=== PATIENT | male | born 2000 | race Two or more races ===

== ENCOUNTER 2024-08-06 16:26 | Emergency (ER) | payer MEDICAID, SELFPAY ==
[2024-08-06] VITALS (18 sets, daily range): BP systolic 94–114; BP diastolic 55–72; PULSE 75–99; RESP 14–25; TEMP 36.9–38.4; O2SAT 96–100; BMI 22.8
--- NOTE | 2024-08-06 17:29 | XR_ITS ---
Examination: CT abdomen with intravenous contrast CT pelvis with intravenous contrast 2-D coronal reconstructions 2-D sagittal reconstructions Date and time of exam:August 06, 20242053 hrs. Indications: Onset right lower abdominal pain today, clinical diagnosis appendicitis. CTDI: vol (mGy) 5.06 DLP: (mGycm) 282 Technique: Most consistent with pericecal abscess axial sections of the abdomen and pelvis have been obtained. 64 slice high-resolution scanner used. 3 mm axial sections have been obtained, post intravenous injection 60 cc Isovue-370 2-D sagittal, coronal reconstructions obtained. Low dose protocols were performed. One or more of the following dose reduction techniques were used; automated exposure control, adjustment of the mA and/or KV according to patient size, use of iterative reconstruction technique. Findings: No focal liver or splenic lesions No gallstones No pancreatic or adrenal mass No renal or ureteral calculi, no hydronephrosis Aorta normal size The appendix is not clearly visualized, but there is a large air and fluid containing mass which is posterior to the cecum, 8.4 x 4.8 x 8.4 cm Urinary bladder intact No bowel obstruction Impression: The appendix is not diagnostically visualized There is a large air and fluid containing mass which is posterior to the cecum, 8.4 x 4.8 x 8.4 cm, differential would include pericecal abscess secondary to ruptured acute appendicitis, the appearance should be clinically correlated
--- NOTE | 2024-08-06 17:32 | PD.EDRME ---
Rapid Medical Screening Exam RME Arrival date/time: 08/06/24 16:26 23-year-old male presents emergency department complaining of right lower quadrant pain that is been ongoing for several weeks patient report seeing primary care provider and was sent to emergency department to rule out appendicitis. Chief Complaint: Abdominal Pain Time Seen by Provider: 08/06/24 17:24 Vital signs: Vital Signs Temperature 101.1 F H 08/06/24 17:15 Pulse Rate 98 08/06/24 17:15 Respiratory Rate 16 08/06/24 17:15 Blood Pressure 102/68 08/06/24 17:15 Pulse Oximetry (%) 96 08/06/24 17:15 Oxygen Delivery Method Room Air 08/06/24 17:15 Vital signs reviewed by provider: Yes
[2024-08-06 17:51] LABS: Collection Type, Urine Clean Catch; Squamous Epithelial Cell,Urine 0 /hpf (0-5)
[2024-08-06 18:00] LABS: Basophils # (Auto) 0.1 Thou/mm3 (0.0-0.2); Basophils % (Auto) 0 % (0-2.5); Eosinophils % (Auto) 0 % (0-10); Hematocrit 41.4 % (41.0-53.0); Hemoglobin 14.6 g/dL (13.5-16.0); Immature Granulocytes % (Auto) 1 % (0-0); Immature Granulocytes Auto 0.15 Thou/mm3 (0.00-0.00); Lymphocytes # (Auto) 1.4 Thou/mm3 (1.0-4.8); Lymphocytes % (Auto) 6 % (10-50); Mean Corpuscular HGB Conc 35.3 g/dl (31.0-37.0); Mean Corpuscular Hemoglobin 30.7 pg (25.0-35.0); Mean Corpuscular Volume 87 fL (80-100); Monocytes # (Auto) 1.6 Thou/mm3 (0.0-0.8); Monocytes % (Auto) 7 % (0-12); Neutrophils # (Auto) 20.5 Thou/mm3 (1.8-7.7); Neutrophils % (Auto) 86 % (37-80); Nucleated Red Blood Cell % 0 /100 WBC (0); Platelet Count 322 Thou/mm3 (140-440); RDW Standard Deviation 38.3 fL (35.1-43.9); Red Blood Count 4.75 Miln/mm3 (4.50-5.90); White Blood Count 23.8 Thou/mm3 (3.8-10.6)
[2024-08-06 18:01] LABS: Bilirubin,Urine Negative (Negative); Blood,Urine 2+ (Negative); Clarity,Urine Clear (Clear/Hazy); Color,Urine Yellow (Lt Yel-Yel); Culture Indicated,Urine Not Indicated; Glucose, Urine Negative (Negative); Ketones,Urine 2+ (Negative); Leukocyte Esterase,Urine Negative (Negative); Nitrite,Urine Negative (Negative); PH,Urine 6.5 (5.0-7.0); Protein,Urine 1+ (Neg - Trace); RBC,Urine 10 /hpf (0-3); Specific Gravity,Urine 1.027 (1.001-1.035); Transitional Epi Cells,Urine 1 /hpf (0-5); Urobilinogen,Urine Negative mg/dL (0.0-1.0); WBC,Urine 5 /hpf (0-5)
[2024-08-06] MEDS: ACETAMINOPHEN 500 MG TABLET 1000 MG PO (18:08)
[2024-08-06 18:32] LABS: Alanine Aminotransferase 72 U/L (10-49); Albumin, Serum 4.7 gm/dL (3.5-5.0); Albumin/Globulin Ratio 1.4 (1.2-2.2); Alkaline Phosphatase 90 U/L (46-116); Anion Gap 9 (7-16); Aspartate Amino Transferase 64 U/L (0-34); BUN/Creatinine Ratio 10 Ratio (12-20); Bilirubin,Total 0.8 mg/dL (0.3-1.2); Blood Urea Nitrogen 10 mg/dL (9-23); Calcium 8.7 mg/dL (8.3-10.6); Calcium (Corrected) 8.7 mg/dL (8.5-10.1); Carbon Dioxide 27.6 mMol/L (20.0-31.0); Chloride 94 mMol/L (98-107); Estimated Creatinine Clearance 111.5 mL/min (>60); Globulin 3.3 gm/dL (2.3-3.5); Glucose 107 mg/dL (74-106); Lipase 23 U/L (12-53); Osmolality,Calculated 261 (275-295); Potassium 3.7 mMol/L (3.4-5.1); Sodium 131 mMol/L (136-145); eGFR > 60 See Note
[2024-08-06 20:07] LABS: Lactate (Lactic Acid) 1.2 mMol/L (0.4-2.0)
--- NOTE | 2024-08-06 20:29 | EDNOTE_ITS ---
ED Abdominal Pain RME/HPI General Chief Complaint: Abdominal Pain Stated complaint: RIGHT ABD PAIN x 2 WEEKS Time seen by provider: 08/06/24 17:24 Arrival date/time: 08/06/24 16:26 RME / HPI RME / HPI narrative: 08/06/24 16:26 23-year-old male presents emergency department complaining of right lower quadrant pain that is been ongoing for several weeks patient report seeing primary care provider and was sent to emergency department to rule out appendicitis. ------ Dr. Clement?s Main ED Evaluation: 23yo male presents to the ED for a chief complaint of RLQ pain x 2 weeks. Patient states his pain was intermittent, reporting it significantly worsened today. He has not vomited since the first day he started having pain. He endorses having diarrhea today. He denies any cough, sore throat, chest pain, shortness of breath or any other associated symptoms. Denies any previous abdominal surgeries. No known allergies. Related Data Home Medications ?Medication ?Instructions ?Recorded ?Confirmed No Known Home Medications 08/06/24 08/06/24 Allergies Allergy/AdvReac Type Severity Reaction Status Date / Time No Known Allergies Allergy Verified 08/06/24 16:32 Review of Systems Review of Systems Systems Reviewed: All systems reviewed, normal except as documented Narrative Review of Systems: Gen: No fever, no chills, no weight loss EYES: No discharge, no visual changes, no pain HEENT: No ear pain, no congestion, no sore throat PULM: No shortness of breath, no cough, no congestion CV: No chest pain, no dyspnea on exertion, no palpitations GI: No nausea, no vomiting, + diarrhea, + pain, no constipation : No frequency, no urgency, no dysuria Musc/skel: No joint pain, no back pain Skin: No rash. Warm and dry. Psyc: No hallucinations, no depression Heme/Lymph: No easy bleeding or bruising tendencies Neuro: No weakness, no headache Past Medical History Past Medical History RESPIRATORY: Negative Asthma GENITOURINARY: Negative Renal Disease HEMATOLOGIC: Negative Sickle Cell Disease Social History SMOKING STATUS: Heavy (> 1 pack/day) ED Exam Narrative Physical exam: GENERAL APPEARANCE: alert and oriented x 4, well-developed, well-nourished, no acute distress VITALS: All vitals were reviewed and the pulse ox is 96% on room air, which is normal according to my interpretation. HEENT: Normocephalic, atraumatic; pupils equal, round, reactive to light; EOMI; mucous membranes pink, moist; oropharynx clear NECK: Supple LUNGS: CTABL; no wheezes, no rales, no rhonchi HEART: Regular rate, regular rhythm; normal S1, S2; no murmurs ABDOMEN: non distended; normal BS; soft, severe RLQ tenderness, no guarding, + rigidity and rebound; no masses, no organomegaly, no hernia BACK: no CVA tenderness EXTREMITIES: atraumatic; no edema NEUROLOGIC: awake; alert and oriented x4; cranial nerves II-XII grossly intact; no focal sensory or motor deficits PSYCHIATRIC: appropriate mood and affect SKIN: warm, dry, normal color; no rashes Course Course Course Narrative: 1916: Sepsis alert initiated. Orders made at this time are congruent with ED Adult Sepsis Order List. Re-evaluation is to be completed. CXR is ordered for determining the etiology of fever. Quality Measures Possible source: GI tract/intra-abdominal Blood cultures ordered: yes Antibiotic ordered: Yes Pertinent labs: 08/06/24 08/06/24 19:36 21:26 Lactic Acid 1.2 mMol/L (0.4-2.0) Procalcitonin 0.43 ng/ml 0.34 ng/ml (0.0-0.49) (0.0-0.49) sepsis Orders Category Date Time Status CT Screening NOW Care 08/06/24 17:29 Completed Ball Mill Operator STAT Care 08/06/24 20:33 Completed Continuous Pulse Oximetry STAT Care 08/06/24 20:33 Completed EKG (ED ONLY) *Do not use* NOW Care 08/06/24 20:33 Completed Insert IV NOW Care 08/06/24 20:33 Completed Insert [Insert IV] NOW Care 08/06/24 17:29 Completed NPO STAT Care 08/06/24 20:[address] abdomen pelvis w con Stat Exams 08/06/24 17:29 Completed EKG (ED Only) Stat Exams 08/06/24 20:33 Draft XR chest 1V portable Stat Exams 08/06/24 20:33 Completed B-Type Natriuretic Peptide Stat Lab 08/06/24 21:26 Completed Blood Culture (Lab) Stat Lab 08/06/24 19:36 Results Blood Culture (Lab) Stat Lab 08/06/24 21:28 Results CBC Stat Lab 08/06/24 17:48 Completed CMP [Comprehensive Metabolic Panel] Stat Lab 08/06/24 17:48 Completed LDH (Lactate Dehydrogenase) Stat Lab 08/06/24 21:26 Completed Lactate (Lactic Acid) Stat Lab 08/06/24 19:36 Completed Lipase Stat Lab 08/06/24 17:48 Completed Magnesium Stat Lab 08/06/24 21:26 Completed Partial Thromboplastin Time Stat Lab 08/06/24 21:26 Completed Phosphorous Stat Lab 08/06/24 21:26 Completed Procalcitonin Stat Lab 08/06/24 19:36 Completed Procalcitonin Stat Lab 08/06/24 21:26 Completed Prothrombin Time with INR Stat Lab 08/06/24 21:26 Completed Troponin I Stat Lab 08/06/24 21:26 Completed Urinalysis, C/S if Indicated Stat Lab 08/06/24 17:37 Completed Acetaminophen Tab [Tylenol ES Tab] Med 08/06/24 17:29 Discontinued 1,000 mg PO X1 ONE Acetaminophen Tab [Tylenol Tab] Med 08/07/24 06:26 Discontinued 650 mg PO X1 ONE Morphine Inj Med 08/07/24 08:15 Discontinued 4 mg IVP X1 ONE Piper/Tazo 3.375 gm [Zosyn] Med 08/06/24 20:33 Discontinued 3.375 gm in 50 ml IV X1 Piper/Tazo Inj [Zosyn Inj] 3.375 gm Med 08/07/24 10:45 Discontinued Sodium Chloride 0.9% (P) [Ns 0.9% (P)] 50 ml IV X1 Sodium Chloride 0.9% 1000 ml [Ns] 2,052 ml Med 08/06/24 20:33 Discontinued IV 2,052 mls/hr Vancomycin Inj 1,000 mg Med 08/06/24 20:34 Discontinued Sodium Chloride 0.9% 250 ml [Ns] 250 ml IV X1 Vital Signs Vital signs: Vital Signs Temperature 101.1 F H 08/06/24 17:15 Pulse Rate 98 08/06/24 17:15 Respiratory Rate 16 08/06/24 17:15 Blood Pressure 102/68 08/06/24 17:15 Pulse Oximetry (%) 96 08/06/24 17:15 Oxygen Delivery Method Room Air 08/06/24 17:15 Abdominal Pain MDM MDM Narrative MDM Narrative:: Scribe Attestation: 08/06/24 - Lena Osborn am scribing for and in the presence of Dr. Clement. Melba Allenfield made aware of this patient's case. Awaiting callback at this time. Patient data External records reviewed:: [facility] previous records (Per chart review, patient has no previous ED visits or admissions to this facility.) Clinical information provided by:: patient Social determinants that could affect healthcare access:: none Patient has the following chronic illnesses:: none How is presenting disease/condition affected by chronic disease/condition?: no chronic disease Evaluation data The following diagnostics were reviewed and interpreted by me:: lab results, radiology exam(s) and EKG tracing(s) Lab and/or radiology exams considered but not ordered:: none Interpretation Summary: WBC count is elevated at 23.8, Sodium is low at 131, Lactic Acid is normal, Lipase is normal, according to my interpretation. EKG done at 2143, NSR, rate of 81, normal axis, no ectopy, T-wave abnormalities in the precordial leads, no STEMI, according to my interpretation. ---- [facility] Report Signed Patient: ARTEMIO TEJADA [facility]. Record#: [id number] Birthdate: 2000 Age/Sex: 23 / M Location: [facility] Attending Dr: Ordering Physician: Sasha FELIX)Kunal Date of Service: 08/06/24 Procedure(s): CT abdomen pelvis w con Accession Number(s): [id number] cc: Alan Trivedi MD; Som Nassar MD; Sasha FELIX)Kunal~ Examination: CT abdomen with intravenous contrast CT pelvis with intravenous contrast 2-D coronal reconstructions 2-D sagittal reconstructions Date and time of exam:August 06, 20242053 hrs. Indications: Onset right lower abdominal pain today, clinical diagnosis appendicitis. CTDI: vol (mGy) 5.06 DLP: (mGycm) 282 Technique: Most consistent with pericecal abscess axial sections of the abdomen and pelvis have been obtained. 64 slice high-resolution scanner used. 3 mm axial sections have been obtained, post intravenous injection 60 cc Isovue-370 2-D sagittal, coronal reconstructions obtained. Low dose protocols were performed. One or more of the following dose reduction techniques were used; automated exposure control, adjustment of the mA and/or KV according to patient size, use of iterative reconstruction technique. Findings: No focal liver or splenic lesions No gallstones No pancreatic or adrenal mass No renal or ureteral calculi, no hydronephrosis Aorta normal size The appendix is not clearly visualized, but there is a large air and fluid containing mass which is posterior to the cecum, 8.4 x 4.8 x 8.4 cm Urinary bladder intact No bowel obstruction Impression: The appendix is not diagnostically visualized There is a large air and fluid containing mass which is posterior to the cecum, 8.4 x 4.8 x 8.4 cm, differential would include pericecal abscess secondary to ruptured acute appendicitis, the appearance should be clinically correlated Dictated By: Som Nassar MD Signed By: <Electronically signed by Som Nassar MD in OV> 08/06/242117 ------- [facility] Report Signed Patient: ARTEMIO TEJADA Record#: [id number] Birthdate: 2000 Age/Sex: 23 / M Location: [facility] Attending Dr: Ordering Physician: Jose D Clement MD Date of Service: 08/06/24 Procedure(s): XR chest 1V portable Accession Number(s): [id number] cc: Alan Trivedi MD; Som Nassar MD; Jose D Clement MD~ Examination: AP chest single view Technique one AP portable upright chest single view Exam date and time: July 29, 20242056 hrs. Indications: Sepsis alert today Findings: Normal heart size Lungs are clear. The osseous structures are intact Impression: No active disease Dictated By: Som Nassar MD Signed By: <Electronically signed by Som Nassar MD in OV> 08/06/242101 Medications / Prescriptions Medications or Prescriptions considered but not ordered:: none Medication administrations:: Medication Administration History Discontinued Medications Acetaminophen (Acetaminophen 500 Mg Tablet) 1,000 mg PO X1 ONE Stop: 08/06/24 17:30 Last Admin: 08/06/24 18:08 Dose: 1,000 mg Documented By: Acetaminophen (Acetaminophen 325 Mg Tablet) 650 mg PO X1 ONE Stop: 08/07/24 06:27 Last Admin: 08/07/24 06:29 Dose: 650 mg Documented By: TC Sodium Chloride (Ns) 2,052 mls @ 2,052 mls/hr 30 ml/kg infuse over 60 min (2052 ml) IV .Q1H ONE Stop: 08/06/24 21:32 Last Infusion: 08/06/24 22:55 Dose: Infused Documented By: Admin: 08/06/24 20:52 Dose: 2,052 mls/hr Documented By: KASEY Piperacillin/Tazobactam/Dextrose (Zosyn) 3.375 gm in 50 mls @ 100 mls/hr IV X1 ONE Stop: 08/06/24 21:02 Last Infusion: 08/06/24 21:07 Dose: Infused Documented By: Admin: 08/06/24 20:52 Dose: 100 mls/hr Documented By: KASEY Vancomycin HCl 1,000 mg/ (Sodium Chloride) 250 mls @ 150 mls/hr IV X1 ONE Stop: 08/06/24 22:13 Last Infusion: 08/07/24 00:38 Dose: Infused Documented By: Admin: 08/06/24 22:21 Dose: 150 mls/hr Documented By: BERTRAM Comments: unable to scan vancomycin medication, vancomycin 1gm and ns 250ml double verified with saroj velasco. Piperacillin Sod/Tazobactam (Sod 3.375 gm/ Sodium Chloride) 50 mls @ 100 mls/hr IV X1 ONE Stop: 08/07/24 11:14 Last Admin: 08/07/24 10:50 Dose: 100 mls/hr Documented By: CHERIE Morphine Sulfate (Morphine Sulf Inj 10 Mg/Ml Vial) 4 mg IVP X1 ONE Stop: 08/07/24 08:16 Last Admin: 08/07/24 08:21 Dose: 4 mg Documented By: CHERIE see above Consultations Consultation(s) initiated? (list below): Yes Consultation #1 (Physician, Specialty, Details): Discussed case with [Dr. Hickman] from [general surgery] regarding [consultation]. Discussed patients ED course, exam findings, labs, and radiology results. States the patient needs drainage by IR and needs to be transferred. Time: 21:35 Diagnosis Differential diagnosis abdominal pain: acute appendicitis, diverticulitis, pancreatitis and other (ruptured appendicitis) Most likely diagnosis given after review of the tests above:: see below Admission Indicated Admission indicated?: not indicated Explain why admission is indicated or not indicated:: Patient requires a higher [id number]. Admission Request Was there a request for admission?: No Disposition Plan Disposition Plan: other (specify) (Signed out to Dr. Martins at 0600 pending callback from [facility] Critical Care Time Critical Care Time Critical Care Time: Yes Total Critical Care Time (min.): 40 Attestation: The high probability of sudden, clinically significant deterioration in the patient?s condition required the highest level of my preparedness to intervene urgently. The services I provided to this patient were to treat and/or prevent clinically significant deterioration. Services included the following: chart data review, reviewing nursing notes and/or old charts, documentation time, sales support consultant collaboration regarding findings and treatment options, medication orders and management, direct patient care, vital sign assessments and ordering, in terpreting and reviewing diagnostic studies and lab tests. Aggregate critical care time includes only time during which I was engaged in work directly related to the patient?s care, as described above, whether at bedside or elsewhere in the Emergency Department. It did not include time spent performing other reported procedures or the services of residents, students, nurses or physician assistants. Discharge Plan Plan Patient Disposition: [facility] Pt Being Transferred to: [facility] Service Needed for Transfer: General Surgery Prescriptions/Referrals Prescriptions/Med Rec: No Action No Known Home Medications Referrals: Alan Trivedi MD [Primary Care Provider] - In 1 week Problem List Clinical Impression: Sepsis, Ruptured appendicitis Patient/Caregiver Discharge Instructions Print Language: Cymraes Stand Alone Forms: [employer] Award Info., Patient Portal Info Letter
[2024-08-06 20:33] LABS: Procalcitonin 0.43 ng/ml (0.0-0.49)
--- NOTE | 2024-08-06 20:33 | XR_ITS ---
Examination: AP chest single view Technique one AP portable upright chest single view Exam date and time: July 29, 20242056 hrs. Indications: Sepsis alert today Findings: Normal heart size Lungs are clear. The osseous structures are intact Impression: No active disease
--- NOTE | 2024-08-06 20:33 | EKG_ITS ---
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
[2024-08-06] MEDS: PIPER/TAZO 3.375 GM 3.375 GM/50 ML BAG IV (20:52)
[2024-08-06] MEDS: SODIUM CHLORIDE 0.9% 1000 ML 2,052 ML 2052 ML IV (20:52)
[2024-08-06 22:09] LABS: INR 1.4 (0.9-1.3); Prothrombin Time 15.2 Seconds (9.0-12.2)
[2024-08-06 22:11] LABS: B-Type Natriuretic Peptide 42 pg/mL (0-100)
[2024-08-06 22:21] LABS: Magnesium 2.3 mg/dL (1.6-2.6); Phosphorous 4.1 mg/dL (2.4-5.1); Troponin I < 0.002 ng/mL (0.0-0.045)
[2024-08-06] MEDS: Vancomycin Inj 1,000 MG in SODIUM CHLORIDE 0.9% 250 ML 250 ML 150 MG IV (22:21)
[2024-08-06 22:38] LABS: LDH (Lactate Dehydrogenase) 283 U/L (120-246); Procalcitonin 0.34 ng/ml (0.0-0.49)
[2024-08-07] VITALS (31 sets, daily range): BP systolic 82–110; BP diastolic 47–70; PULSE 71–103; RESP 15–30; TEMP 36.9–38.7; O2SAT 95–100
--- NOTE | 2024-08-07 03:51 | PC.NURSE ---
Khalif DEL REAL CONTACTED PT PKT SENT. REQUESTING ANOTHER CT [address] DANIEL SPOKE WITH NEURO DOCTOR.
--- NOTE | 2024-08-07 03:56 | PC.NURSE ---
6584 HINDUISM CONTACTED PT PKT SENT. DR DANIEL SPOKE WITH TRANSFER NURSE. 3139 CONTACTED HINDUISM CONCERNING PT TRANSFER STATUS RESENT PT PKT. TRANSFER STATES IR NOT AVAILABLE UNTIL 7 AM.
[2024-08-07] MEDS: ACETAMINOPHEN 325 MG TABLET 650 MG PO (06:29)
--- NOTE | 2024-08-07 06:59 | PC.NURSE ---
0650 RECEIVED CALL FROM DAQUAN WITH [employer] STATING THEY WOULD NEED A PRIOR AUTHORIZATION FOR DIRECT ADNIT DAQUAN # [phone].
--- NOTE | 2024-08-07 07:35 | PD.EDADDENDU ---
Emergency Room Addendum Addendum Narrative: 0600 care assumed by previous shift provider. Past medical, surgical, social and family history reviewed. Vitals and home medications reviewed. Results and treatment plan discussed. I will assume the care of the patient at this time and will follow the patient, pending final disposition. 0645: Melba Figueroa and is excepted pending insurance authorization, we have advised ER to ER transfer for the patient. 0730: Case was discussed with Dr. Warren, IR with Melba Figueroa and accepts patient for IR intervention 0745: Case was discussed with Dr. Solomon, ER physician with event is very controlled and accepts patient ER to ER
--- NOTE | 2024-08-07 08:08 | PC.NURSE ---
Addendum entered by Kori Garrett RN 08/07/24 09:29: correction nurse to nurse report [phone] Addendum entered by Kori Garrett RN 08/07/24 09:04: address to [facility] [place] is [address] [place] [address] Original Note: Spoke with Marian, welding equipment sales representative with accepting physician Dr. Castellanos for [facility] ER, Nurse to nurse report #[phone], will set up transport
[2024-08-07] MEDS: MORPHINE SULF INJ 10 MG/ML VIAL 4 MG IVP (08:21)
--- NOTE | 2024-08-07 10:43 | PC.NURSE ---
Report called to ER charge nurse in [facility] all concerns answered
[2024-08-07] MEDS: PIPER/TAZO INJ 3.375 GM in SODIUM CHLORIDE 0.9% (P) 50 ML IV (10:50)
== END 2024-08-07 11:16 | disposition short-term general hospital (02) ==
PROVIDERS: Emergency Medicine; Emergency Provider Emergency Medicine; PCP Family Medicine; Referring Provider Emergency Medicine
DX: A41.9 Sepsis, unspecified organism (principal); K35.32 Acute appendicitis with perforation, localized peritonitis, and gangrene, without abscess; R94.31 Abnormal electrocardiogram [ECG] [EKG]; Z75.1 Person awaiting admission to adequate facility elsewhere
CPT/HCPCS: 36415; 71045; 74177; 80053; 81001; 83605; 83615; 83690; 83735; 83880; 84100; 84145; 84484; 85025; 85610; 85730; 87040; 87086; 87400; 87811; 93005; 96361; 96365; 96366; 96367; 96375; 99291; A4649; J2270; J2543; J3371; J7030; J7050; Q9967; A9270; J3370

== ENCOUNTER 2024-09-02 14:42 | Emergency (ER) | payer MEDICAID, SELFPAY ==
[2024-09-02 14:43] VITALS: BMI 20.9
[2024-09-02 15:41] VITALS: BP 119/76; PULSE 100; RESP 16; TEMP 37.1; O2SAT 95
--- NOTE | 2024-09-02 15:45 | EDNOTE_ITS ---
ED General RME/HPI General Stated complaint: Removal of PICC line Time Seen by Provider: 09/02/24 15:22 Arrival date/time: 09/02/24 14:42 RME / HPI RME / HPI narrative: 24-year-old male patient came in requesting request for removal of PICC line patient had PICC line placed since August 11 for abdominal infection. Antibiotic treatment finished last antibiotic treatment was 9 days ago. Nobody will remove the PICC line due to insurance problem. Patient denies any complaints Related Data Home Medications ?Medication ?Instructions ?Recorded ?Confirmed No Known Home Medications 08/06/24 08/06/24 Allergies Allergy/AdvReac Type Severity Reaction Status Date / Time No Known Allergies Allergy Verified 08/06/24 16:32 Review of Systems Review of Systems Narrative Review of Systems: Review of system reviewed and within normal limits except mentioned in HPI ED Exam Narrative Physical exam: VITAL SIGNS: Reviewed. GENERAL APPEARANCE: Alert and interactive, follows commands, no acute distress, HEAD AND FACE: Non-traumatic. ENT: PERRL, pink conjunctivitis, eyelid no trauma, Mucous membrane moist. NECK: Supple, nontender, no nuchal rigidity. CHEST: No tenderness, no crepitus, no paradoxical movement, no retractions. LUNGS: Clear, well ventilated, symmetric, no rales, no wheezing, no ronchi, no stridor, good breath sounds bilaterally. HEART: Regular rate, regular rhythm, no murmur, no gallops. ABDOMEN: Soft, positive bowel sounds, nondistended, no guarding, nontender, no rebound, no masses, RECTAL: Deferred. GENITAL: Deferred. NEUROLOGICAL: Gross motor function intact sensory function intact, Appropriate for age. MUSCULOSKELETAL: low back nontender, full range of motion. EXTREMITIES: Dirty looking PICC line noted on the right upper extremity, no drainage no redness nontender, full range of motion. SKIN: Color pink, dry, no rash, no lacerations, no abrasions, no contusions. LYMPHATICS: Deferred. Course Quality Measures none Vital Signs Vital signs: Vital Signs Temperature 98.7 F 09/02/24 15:41 Pulse Rate 100 09/02/24 15:41 Respiratory Rate 16 09/02/24 15:41 Blood Pressure 119/76 09/02/24 15:41 Pulse Oximetry (%) 95 09/02/24 15:41 Oxygen Delivery Method Room Air 09/02/24 15:[address] [facility] Patient data External records reviewed:: None Clinical information provided by:: patient Social determinants that could affect healthcare access:: none Patient has the following chronic illnesses:: None How is presenting disease/condition affected by chronic disease/condition?: no chronic disease Evaluation data The following diagnostics were reviewed and interpreted by me:: other (specify) (None) Lab and/or radiology exams considered but not ordered:: None Interpretation Summary: None Medications Medications considered but not ordered:: None Medication administrations:: None Consultations Consultation(s) initiated? (list below): No Diagnosis Differential Diagnosis ED Complaint MDM: Encounter for removal of PICC line Most likely diagnosis given after review of the tests above:: Encounter for removal PICC line Admission Indicated Admission indicated?: not indicated Explain why admission is indicated or not indicated:: Stable Admission Request Was there a request for admission?: No Disposition Plan Disposition Plan: Discharge Discharge Attestation Discharge Attestation: Patient condition: Stable Medical Decision Making MDM Narrative MDM Narrative: 24-year-old male patient came in requesting request for removal of PICC line patient had PICC line placed since August 11 for abdominal infection. Antibiotic treatment finished last antibiotic treatment was 9 days ago. Nobody will remove the PICC line due to insurance problem. Patient denies any complaints PICC line was removed by me without any difficulty. Patient tolerated the procedure. No bleeding noted. Patient appears nontoxic and hemodynamically stable. Patient discharged home and instructed to follow-up with primary care provider in 24 to 48 hours for any concern Differential Diagnosis Differential Diagnosis: Encounter for removal of PICC line Discharge Plan Plan Patient Disposition: HOME (Self Care) Disposition Comment: Stable Prescriptions/Referrals Prescriptions/Med Rec: No Action No Known Home Medications Problem List Clinical Impression: Encounter for removal of peripherally inserted central catheter Patient/Caregiver Discharge Instructions Education Materials: Discharge Instructions ... Additional Instructions: Thank you for the opportunity for serving you today. You are stable for discharged . You are advised to: Follow-up with your PCP in 1 to 2 days Return to ED for worsening of symptoms Print Language: Filipino Stand Alone Forms: [employer] Award Info., Patient Portal Info Letter
== END 2024-09-02 15:50 | disposition home or self-care (01) ==
LOC: SERX 16:29
PROVIDERS: Emergency Provider Emergency Medicine
DX: Z45.2 Encounter for adjustment and management of vascular access device (principal)
CPT/HCPCS: 99282